=== PATIENT | female | born 1935 | race Caucasian/White ===

== ENCOUNTER 2023-03-25 11:46 | Emergency (ER) | payer MEDICARE, OTHER ==
--- NOTE | 2023-03-25 11:49 | ERPHSYRPT ---
- History of Present Illness Time Seen by Provider: 03/25/23 11:49 Source: patient, EMS, old records Exam Limitations: no limitations Physician History: This is an 87-year-old white female who had a stroke on January 31, 2023 at a different facility. She has been rehabbing since that time. This stroke has affected her right side. Patient was using her walker this morning felt a little dizzy sat down and "passed out". EMS was contacted and the ambulance service noted that the patient's systolic blood pressure was in the low 100s. Patient currently lives at home and is undergoing outpatient physical therapy at [facility]. Patient arrived to the emergency department awake alert and oriented and her systolic blood pressure is 131. Her heart rate is normal and she is oxygenating well on room air. She denies chest pain. She denies shortness of breath. Patient has a history of hypothyroidism, angina and CVA in the past. Timing/Duration: today Severity: mild Character of Deficits: none Deficits: no difficulties (Patient uses a walker since her recent stroke on January 31, 2023) Baseline/Normal Cognition: alert oriented x 3 Current Cognition: alert oriented x 3 Baseline Gait: uses walker Associated Symptoms: denies symptoms Allergies/Adverse Reactions: Penicillins Allergy (Verified 03/25/23 11:50) Travel Risk - International Travel Have you traveled outside of the country in past 3 weeks: No - Coronavirus Screening Are you exhibiting any of the following symptoms?: No Close contact with a COVID-19 positive Pt in past 14-21 Days: No - Review of Systems Constitutional: No Symptoms Eyes: No Symptoms Ears, Nose, & Throat: No Symptoms Respiratory: No Symptoms Cardiac: No Symptoms Abdominal/Gastrointestinal: No Symptoms Genitourinary Symptoms: No Symptoms Musculoskeletal: No Symptoms Skin: No Symptoms Neurological: Other (Currently asymptomatic. However had a syncopal episode at home prior to arrival) Psychological: No Symptoms Endocrine: No Symptoms Hematologic/Lymphatic: No Symptoms Immunological/Allergic: No Symptoms All Other Systems: Reviewed and Negative - Past Medical History Pertinent Past Medical History: Yes Neurological History: Stroke Cardiac History: Angina Respiratory History: Other Endocrine Medical History: Hypothyroidism Musculoskeletal History: Arthritis Other Medical History: ALLERGIES: BLACK TEA, HYDROCORTISONE, IBUPROFEN, NEOMYCIN, PEANUT, PENICILLIN, SULFA, TRAZODONE. 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 - Past Surgical History Past Surgical History: Yes - Nursing Vital Signs Nursing Vital Signs: Initial Vital Signs Temperature 96.5 F 03/25/23 11:51 Pulse Rate 73 03/25/23 11:51 Respiratory Rate 18 03/25/23 11:51 Blood Pressure 123/79 03/25/23 11:51 O2 Sat by Pulse Oximetry 97 03/25/23 11:51 Pain Scale Pain Intensity 0 - [place] Coma Scale Best Eye Response (Sincere): (4) open spontaneously Best Verbal Response (Sincere): (5) oriented Best Motor Response (Sincere): (6) obeys commands [place] Total: 15 - Physical Exam General Appearance: no apparent distress, alert, anxiety Eye Exam: bilateral eye: normal inspection, PERRL, EOMI Ears, Nose, Throat Exam: normal ENT inspection, moist mucous membranes Neck Exam: normal inspection, non-tender, supple, full range of motion Respiratory: normal breath sounds, lungs clear, airway intact, No chest tenderness, No respiratory distress Cardiovascular: regular rate/rhythm, normal heart sounds, normal peripheral pulses Gastrointestinal: soft, normal bowel sounds, No tenderness Pelvic Exam: not done Rectal Exam: not done Back Exam: normal inspection, normal range of motion, No CVA tenderness, No vertebral tenderness Extremity Exam: normal inspection, normal range of motion, pelvis stable Mental Status: alert, oriented x 3, 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 Exam: normal hearing, normal speech, PERRL, tongue midline Coordination/Gait: normal finger to nose Motor/Sensory: weak motor strength RUE (Secondary to recent stroke (January 31, 2023)), weak motor strength RLE (Unchanged from recent stroke January 31, 2023) Skin Exam: normal color, warm, dry SpO2 Interpretation: normal O2 Delivery: Room Air - Course Nursing assessment & vital signs reviewed: Yes EKG Interpreted by Me: RATE ([id number]), Sinus Rhythm, Left [place] Deviation, NORMAL INT ERVALS, NORMAL QRS, NORMAL ST-T, Other (No acute ischemic changes on today's twelve-lead EKG.) Ordered Tests: Active Orders 24 hr Category Date Time Status EKG-ER Only STAT Care 03/25/23 12:21 Active IV Insertion STAT Care 03/25/23 12:21 Active cath [Cath for Specimen-Straight] STAT Care 03/25/23 12:00 Active HEAD WITHOUT CONTRAST [CT] Stat Exams 03/25/23 12:20 Completed CBC W DIFF Stat Lab 03/25/23 12:25 Completed CMP Stat Lab 03/25/23 12:25 Completed CULTURE,URINE Stat Lab 03/25/23 12:00 Received T4 (Thyroxine) Stat Lab 03/25/23 12:25 Completed TSH [TSH, 3RD Generation] Stat Lab 03/25/23 12:25 Completed UA W/RFX UR CULTURE Stat Lab 03/25/23 12:00 Completed Medication Summary Generic Name Dose Route Start Last Admin Trade Name Freq PRN Reason Stop Dose Admin Sodium Chloride 1,000 mls @ 999 mls/hr 03/25/23 12:21 03/25/23 13:37 Sodium Chloride 0.9% 1000 Ml IV 03/25/23 13:21 Infused .Q1H1M STA Infusion Discontinued Medications Generic Name Dose Route Start Last Admin Trade Name Freq PRN Reason Stop Dose Admin Levofloxacin 500 mg 03/25/23 14:04 Levofloxacin 500 Mg Tablet PO 03/25/23 14:05 STAT ONE Lab/Rad Data: Laboratory Result Diagrams 03/25/23 12:25 03/25/23 12:25 Laboratory Results 03/25/23 03/25/23 03/25/23 Range/Units 12:25 12:25 12:25 WBC 4.8 (4.0-10.5) x10^3/uL RBC 4.02 L (4.1-5.4) x10^6/uL Hgb 12.9 (12.0-16.0) g/dL Hct 39.4 (35-47) % MCV 98.0 (78-100) fL MCH 32.1 H (26-32) pg MCHC 32.7 (32-36) g/dL RDW 12.2 (11.5-14.0) % Plt Count 172 (150-450) x10^3/uL MPV 11.7 H (7.5-11.0) fL Gran % 68.2 H (36.0-66.0) % Immature Gran % (Auto) 0.4 (0.00-0.4) % Nucleat RBC Rel Count 0.0 (0.00-0.1) % Eos # (Auto) 0.30 (0-0.5) x10^3/uL Immature Gran # (Auto) 0.02 (0.00-0.03) x10^3u/L Absolute Lymphs (auto) 0.81 L (1.0-4.6) x10^3/uL Absolute Monos (auto) 0.35 (0.0-1.3) x10^3/uL Absolute Nucleated RBC 0.00 (0.00-0.01) x10^3u/L Lymphocytes % 17.1 L (24.0-44.0) % Monocytes % 7.4 (0.0-12.0) % Eosinophils % 6.3 H (0.00-5.0) % Basophils % 0.6 (0.0-0.4) % Absolute Granulocytes 3.24 (1.4-6.9) x10^3/uL Basophils # 0.03 (0-0.4) x10^3/uL Sodium 139 (137-145) mmol/L Potassium 4.2 (3.5-5.1) mmol/L Chloride 103 (98-107) mmol/L Carbon Dioxide 29 (22-30) mmol/L Anion Gap 11.6 (5-15) MEQ/L BUN 31 H (7-17) mg/dL Creatinine 0.85 (0.52-1.04) mg/dL Estimated GFR > 60.0 ML/MIN Glucose 113 H (74-106) mg/dL Calcium 8.6 (8.4-10.2) mg/dL Total Bilirubin 0.50 (0.2-1.3) mg/dL AST 30 (14-36) U/L ALT 31 (0-35) U/L Alkaline Phosphatase 80 (38-126) U/L Serum Total Protein 6.7 (6.3-8.2) g/dL Albumin 3.9 (3.5-5.0) g/dL Thyroxine (T4) 10.2 (5.53-10.96) ug/dL TSH 3rd Generation 3.180 (0.47-4.68) mIU/L Urine Color (Yellow) Urine Appearance (Clear) Urine pH (4.6-8.0) Ur Specific [place] (1.005-1.030) Urine Protein (Negative) Urine Glucose (UA) (Negative) mg/dL Urine Ketones (Negative) Urine Blood (Negative) Urine Nitrite (Negative) Urine Bilirubin (Negative) Urine Urobilinogen (0.2) mg/dL Ur Leukocyte Esterase (Negative) U Hyaline Cast (Auto) (0-2) /LPF Urine Microscopic RBC (0-5) /HPF Urine Microscopic WBC (0-5) /HPF Ur Epithelial Cells (None Seen) /HPF Urine Bacteria (None Seen) /HPF Urine Culture Reflexed (NO) 03/25/23 Range/Units 12:00 WBC (4.0-10.5) x10^3/uL RBC (4.1-5.4) x10^6/uL Hgb (12.0-16.0) g/dL Hct (35-47) % MCV (78-100) fL MCH (26-32) pg MCHC (32-36) g/dL RDW (11.5-14.0) % Plt Count (150-450) x10^3/uL MPV (7.5-11.0) fL Gran % (36.0-66.0) % Immature Gran % (Auto) (0.00-0.4) % Nucleat RBC Rel Count (0.00-0.1) % Eos # (Auto) (0-0.5) x10^3/uL Immature Gran # (Auto) (0.00-0.03) x10^3u/L Absolute Lymphs (auto) (1.0-4.6) x10^3/uL Absolute Monos (auto) (0.0-1.3) x10^3/uL Absolute Nucleated RBC (0.00-0.01) x10^3u/L Lymphocytes % (24.0-44.0) % Monocytes % (0.0-12.0) % Eosinophils % (0.00-5.0) % Basophils % (0.0-0.4) % Absolute Granulocytes (1.4-6.9) x10^3/uL Basophils # (0-0.4) x10^3/uL Sodium (137-145) mmol/L Potassium (3.5-5.1) mmol/L Chloride (98-107) mmol/L Carbon Dioxide (22-30) mmol/L Anion Gap (5-15) MEQ/L BUN (7-17) mg/dL Creatinine (0.52-1.04) mg/dL Estimated GFR ML/MIN Glucose (74-106) mg/dL Calcium (8.4-10.2) mg/dL Total Bilirubin (0.2-1.3) mg/dL AST (14-36) U/L ALT (0-35) U/L Alkaline Phosphatase (38-126) U/L Serum Total Protein (6.3-8.2) g/dL Albumin (3.5-5.0) g/dL Thyroxine (T4) (5.53-10.96) ug/dL TSH 3rd Generation (0.47-4.68) mIU/L Urine Color Dark Yellow A (Yellow) Urine Appearance Cloudy A (Clear) Urine pH 5.5 (4.6-8.0) Ur Specific [place] 1.025 (1.005-1.030) Urine Protein 30 (Negative) Urine Glucose (UA) Negative (Negative) mg/dL Urine Ketones 15 A (Negative) Urine Blood Negative (Negative) Urine Nitrite Negative (Negative) Urine Bilirubin Negative (Negative) Urine Urobilinogen 1.0 A (0.2) mg/dL Ur Leukocyte Esterase Moderate A (Negative) U Hyaline Cast (Auto) 20-50 (0-2) /LPF Urine Microscopic RBC 0-2 (0-5) /HPF Urine Microscopic WBC 21-50 A (0-5) /HPF Ur Epithelial Cells Rare (None Seen) /HPF Urine Bacteria Many A (None Seen) /HPF Urine Culture Reflexed ORDERED SEPARATELY (NO) - Progress Progress: improved, re-examined Progress Note: 03/25/23 14:07 CAT scan of the head without contrast was interpreted by the radiologist and I review the impression. There is multiple lacunar infarctions of different ages seen at both basal ganglia region and external capsule the largest is on the right side. 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 These areas are consistent with the patient's recent clinical history of CVA. This patient's medical issue is 1 of moderate complexity. The level of complexity and the work-up performed is based on the review of the patient's past medical history, review of the patient's medication list, review of the patient's drug allergy list, history of present illness and physical findings on examination. The work-up performed in this patient is placement of intravenous line, infusion of normal saline solution, CT scan of the head without contrast, CBC, CMP and urinalysis. We also performed a twelve-lead EKG. The work-up results were reviewed by me. Patient has radiographic findings of her recent CVA. Clinically, she is awake alert and oriented. She does have right-sided residual weakness from the recent CVA. Her dizziness may be related to the CVA but additionally, she has a significant urinary tract infection. We will provide her with Levaquin 500 mg orally now and then discharge her to home with a prescription of Cipro 500 mg orally twice a day for 7 days which will be remotely sent to the patient's pharmacy. Counseled pt/family regarding: lab results, diagnosis, need for follow-up, rad results Medical Desision Making - Independent Historian Additional History obtained from: Child (Daughter), Manager Dairy/EMT - Diagnostic Testing Diagnostic test were ordered, analyzed, and reviewed by me: Yes Radiological Interpretation: Reviewed by me, Teleradiologist Report - Risk of complications The pt has a mod risk of morbidity or mortality based on: Need for prescription drug management - Departure Departure Disposition: Home Clinical Impression: Dizziness Condition: Stable Critical Care Time: No Referrals: LACHO ESPINAL [NON-STAFF PHY W/O PRIVILEGES] - Follow up/PCP as directed Additional Instructions: Drink plenty of fluids. Take your antibiotics and other medications as pres cribed. Follow-up with your primary care provider for further evaluation management. Continue your physical therapy as prescribed. Prescriptions: Ciprofloxacin [Cipro 500 MG] 500 mg PO BID #14 tablet
[2023-03-25] MEDS ORDERED: Sodium Chloride 0.9% 1000 ML 1,000 ML IV STA (12:21)
[2023-03-25] MEDS ORDERED: Sodium Chloride 0.9% 1000 ML 1,000 ML ONE (12:25)
[2023-03-25 12:33] LABS: Absolute Neutrophil Ct (ANC) 3.24 x10^3/uL (1.4-6.9); BASOPHIL % 0.6 % (0.0-0.4); Basophil (Absolute #) 0.03 x10^3/uL (0-0.4); Eosinophil % 6.3 % (0.00-5.0); Hematocrit 39.4 % (35-47); Hemoglobin 12.9 g/dL (12.0-16.0); IMMATURE GRAN # 0.02 x10^3u/L (0.00-0.03); IMMATURE GRAN % 0.4 % (0.00-0.4); Lymphocyte (Absolute #) 0.81 x10^3/uL (1.0-4.6); Lymphocytes % 17.1 % (24.0-44.0); Mean Corpuscular Hemoglobin 32.1 pg (26-32); Mean Corpuscular Hgb Concent. 32.7 g/dL (32-36); Mean Platelet Volume 11.7 fL (7.5-11.0); Monocyte (Absolute #) 0.35 x10^3/uL (0.0-1.3); Monocytes % 7.4 % (0.0-12.0); Neutrophil % 68.2 % (36.0-66.0); Platelet Count 172 x10^3/uL (150-450); Red Blood Count 4.02 x10^6/uL (4.1-5.4); Red Cell Distribution Width 12.2 % (11.5-14.0); White Blood Count 4.8 x10^3/uL (4.0-10.5)
[2023-03-25 12:42] LABS: ALBUMIN 3.9 g/dL (3.5-5.0); ALKALINE PHOSPHATASE 80 U/L (38-126); ANION GAP 11.6 MEQ/L (5-15); BLOOD UREA NITROGEN 31 mg/dL (7-17); CHLORIDE 103 mmol/L (98-107); Calcium 8.6 mg/dL (8.4-10.2); Carbon Dioxide 29 mmol/L (22-30); Creatinine 1 0.85 mg/dL (0.52-1.04); EST GLOMERULAR FILTRATION RATE > 60.0 ML/MIN; Glucose 113 mg/dL (74-106); Potassium 4.2 mmol/L (3.5-5.1); SGOT/AST 30 U/L (14-36); SGPT/ALT 31 U/L (0-35); SODIUM 139 mmol/L (137-145); Total Protein 6.7 g/dL (6.3-8.2)
[2023-03-25 13:04] LABS: Appearance Cloudy (Clear); Bacteria Many /HPF (None Seen); Bilirubin Negative (Negative); Blood Negative (Negative); Epithelial Cells Rare /HPF (None Seen); Glucose, Urine Negative (Negative); Ketones 15 (Negative); Leukocyte Esterase Moderate (Negative); Nitrite Negative (Negative); Ph 5.5 (4.6-8.0); Protein,Urine Dip 30 (Negative); RBC 0-2 /HPF (0-5); Specific Gravity 1.025 (1.005-1.030); WBC 21-50 /HPF (0-5)
[2023-03-25 13:05] LABS: Hyaline Casts 20-50 /LPF (0-2)
[2023-03-25 13:06] LABS: ADD URINE CULTURE? ORDERED SEPARATELY (NO)
[2023-03-25 13:13] LABS: T4 (Thyroxine) 10.2 ug/dL (5.53-10.96); TSH, 3RD Generation 3.18 mIU/L (0.47-4.68)
--- NOTE | 2023-03-25 13:41 | XRAY ---
CLINICAL HISTORY:Syncope. COMPARISON:None. TECHNIQUES:Multi-slice CT of the Brain without IV contrast. FINDINGS: Patchy areas of hypodensity are seen at the elena-ventricular deep white matter. Multiple hypodense foci/lacunes are seen at both basal ganglia regions and external capsules, the largest at the right side. A hypodense lesion is seen at the left side of the loraine. Prominent cortical sulci and both Sylvian fissures with the widening of extra-axial CSF spaces and basal cisterns. Mild dilatation of the supra-tentorial ventricular system. Two extra-axial cystic lesions / arachnoid cysts are seen at the left anterior temporal region and left cerebellopontine angles measure about 29 x 14 mm and 22 x 14 mm. No evidence of extra or intra-axial areas of fresh blood density or collections are seen. No midline shifts. Intact calvarium with no fracture lines, apart from right frontal convexity small osteoma. IMPRESSION: 1. 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 2. Multiple lacunar infarctions of different ages are seen at both basal ganglia regions and external capsules , the largest at the right side. 3. A chronic infarction is seen at the left side of the loraine. 4. Two extra-axial cystic lesions / arachnoid cysts are seen at the left anterior temporal region and left cerebellopontine angles. 5. Age-matched involutional brain changes. Electronically Signed by: Yovany Sanford MD. (03/25/2023 12:38:56 CIRCUS ROUSTABOUT)
[2023-03-25] MEDS ORDERED: Levofloxacin 500 MG Tablet PO ONE (14:04)
[2023-03-25] MEDS ORDERED: Levofloxacin 500 MG Tablet ONE (14:09)
[2023-03-25 14:17] VITALS: BP 156/94; PULSE 60; O2SAT 96
== END 2023-03-25 14:50 | disposition home or self-care (01) ==
LOC: ED 11:46
DX: R42 Dizziness and giddiness (principal); N39.0 Urinary tract infection, site not specified
CPT/HCPCS: 36000; 36415; 70450; 80053; 81001; 84436; 84443; 85025; 87086; 93005; 96360; 99284; P9612; A9270-GY